=== PATIENT | female | born 1955 | race Caucasian/White ===

== ENCOUNTER → 2016-09-02 | Outpatient (CLI) | payer OTHER ==
--- NOTE | 2016-09-02 14:46 | DX ---
1. Right Ankle, Three Views History: Pain, post trauma. Evaluate for fracture. Ran over by power wheelchair. Findings: No fracture, effusion, or dislocation is identified. Soft tissue swelling surrounds the ank le. Overall mineralization is normal. Impression: Soft tissue swelling.. 2. Right Foot , Three History:Pain post trauma. Ran over by power wheelchair. Findings: There is marked flexion of the second PIP joint. No fracture or dislocation is identified. There is prominent soft tissue swelling of the distal foot. Impression: Marked flexion of the second PIP joint raises the possibility of a disrupted extensor ten don. Clinical correlation is required.
== END ==
LOC: BMCIMAGING 14:17
PROVIDERS: ATTEND Podiatrist Foot & Ankle Surgery
DX: M79.89 Other specified soft tissue disorders (principal); M79.671 Pain in right foot

== ENCOUNTER → 2016-10-15 | Outpatient (CLI) | payer OTHER | LOC: BMCIMAGING 14:58 | PROVIDERS: ATTEND Internal Medicine | DX: Z12.31 Encounter for screening mammogram for malignant neoplasm of breast (principal) | CPT/HCPCS: G0202 ==

== ENCOUNTER 2017-04-24 17:58 | Emergency (ER) | payer OTHER ==
--- NOTE | 2017-04-24 18:43 | CPEKG ---
Heart Rate: 67 RR Interval: 896 P-R Interval: 136 QRSD Interval: 96 QT Interval: 408 QTC Interval: 431 P Nelson: 50 QRS Nelson: 51 T Wave Nelson: 47 EKG Severity - NORMAL ECG - EKG Impression: SINUS RHYTHM Electronically Signed By: Mallory Owens 24-Apr-2017 21:35:51
[2017-04-24] MEDS ORDERED: NS 500 ML IV ONE (19:05)
[2017-04-24] MEDS ORDERED: MECLIZINE HCL 25 MG TAB PO ONE (19:06)
[2017-04-24] MEDS ORDERED: ONDANSETRON 4 MG/2 ML VIAL IVP ONE (19:06)
[2017-04-24] MEDS ORDERED: ONDANSETRON DISINTEGRATING 4 MG TAB PO ONE (19:50)
[2017-04-24] MEDS ORDERED: ONDANSETRON DISINTEGRATING 4 MG TAB ONE (19:51)
--- NOTE | 2017-04-24 20:38 | EDPHY ---
H & P Stated Complaint: Dizziness, vertigo x 3 days, nausea, fatigue Time Seen by Provider: 04/24/17 18:26 HPI/ROS: CHIEF COMPLAINT: Vertigo, high blood pressure HISTORY OF PRESENT ILLNESS: This is a 62-year-old female presents reporting that for the last 3 days she has had vertigo associated with a generally not feeling well and elevated blood pressure. Patient reports a mild headache. She has had no chest pain or shortness of breath. She has had no palpitations. She has been nauseous but has not vomited. She has had decreased p.o. intake secondary to the nausea. No abdominal pain. No diarrhea. Patient describes her vertigo is a spinning sensation especially when she sits up. Her symptoms are much improved when she lays flat. Symptoms are worse when she looks to the right and worse when she turns her head. No head trauma. She is not taking any specific medications for her vertigo. REVIEW OF SYSTEMS: Aside from elements discussed in the HPI, a comprehensive 10-point review of systems was reviewed and is negative. 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 Hypertension. Vertigo. SOCIAL HISTORY: Nonsmoker. Here with her mother. VITAL SIGNS Reviewed by me. GENERAL: Well-developed, well-nourished, no respiratory distress. No vomiting here. HEENT: Atraumatic. Eyes: No icterus, no injection. DOMENICO, EOMI. No nystagmus noted. Symptoms of vertigo with rightward gaze. Mouth: moist mucous membranes. No erythema or lesions. Neck: supple with no adenopathy. LUNGS: Clear to auscultation bilaterally, no wheezes, rhonchi or rales. CARDIAC: Regular rate and rhythm, no rubs, murmurs or gallops. ABDOMEN: Soft, nontender, nondistended, bowel sounds normal. BACK: No CVA tenderness. EXTREMITIES: No trauma. Trace dependent edema. Flaccid paralysis of both lower extremities. NEURO: Alert and oriented, pleasant. Cranial nerves 2-12 are intact. Normal sensation about the face. Normal strength in the upper extremities. Normal sensation in the upper extremities. SKIN: Warm and dry, no rash. PSYCHIATRIC: Normal mentation, no agitation. - Personal History Current Tetanus/Diphtheria Vaccine: Unsure Current Tetanus Diphtheria and Acellular Pertussis (TDAP): Unsure - Medical/Surgical History Hx Asthma: No Hx Chronic Respiratory Disease: No Hx Diabetes: No Hx Cardiac Disease: No Hx Renal Disease: No Hx Cirrhosis: No Hx Alcoholism: No Hx HIV/AIDS: No Hx Splenectomy or Spleen Trauma: No Other PMH: T9-T10 PARA - Social History Smoking Status: Former smoker Constitutional: Initial Vital Signs Temperature (C) 37.6 C 04/24/17 18:05 Heart Rate 81 04/24/17 18:05 Respiratory Rate 16 04/24/17 18:05 Blood Pressure 160/82 H 04/24/17 18:05 O2 Sat (%) 98 04/24/17 18:05 O2 Delivery Mode Room Air Allergies/Adverse Reactions: niacin [Niacin] Allergy (Verified 06/10/15 14:47) Sulfa (Sulfonamide Antibiotics) Allergy (Verified 06/10/15 14:47) Home Medications: Medication Instructions Recorded Baclofen 11/29/10 Cyclobenzaprine [Flexeril] 10 mg PO TID PRN #20 tab 11/29/10 Cymbalta 11/29/10 Ditropan 11/29/10 FENTANYL 11/29/10 Lyrica 11/29/10 Cephalexin [Keflex (RX)] 500 mg PO QID 7 Days cap 06/10/15 Meclizine HCl [Meclizine HCl 25 mg 25 mg PO BID PRN #20 tab 04/24/17 (RX,OTC)] Ondansetron Odt [Zofran Odt 4 mg 4 mg PO Q6 PRN #12 tab 04/24/17 (*)] Medical Decision Making - Diagnostics Imaging Results: 12-LEAD EKG: Please see the full report in [facility]. My interpretation: Normal sinus rhythm ED Course/Re-evaluation: 62-year-old female presents emergency department with vertigo with a well describe spinning sensation associated with certain head movements and had positioning. She also is concerned regarding her blood pressure which is been ranging in the 160 systolic. She is on a diuretic which was started several months ago for her high blood pressure. Initial plans were placed an IV, provide hydration, check electrolytes, and administer Zofran and meclizine. IV was not able to be placed. Patient would prefer not to have a 2nd attempt at the IV. She understands that we will not be able to told recheck her electrolytes are evaluate her for her elevated blood pressure. She did receive meclizine by mouth and Zofran by mouth. After approximately 20 minute she reports feeling significantly improved. She was able to drink water without any nausea or vomiting. She would prefer to be discharged home to follow up with her primary care physician regarding her elevated blood pressure. Patient looks quite well here. She has had only a mild headache, no chest pain or shortness of breath, no acute neurologic symptoms. She understands that her evaluation is somewhat incomplete as we do not have blood work available. She was discharged with her mother. She was given prescription for meclizine as well as Zofran. Differential Diagnosis: Differential diagnosis of the patient's dizziness was considered including but not limited to peripheral and central causes of vertigo, cardiac arrhythmias, cardiac ischemia, electrolyte disturbances, neurologic causes, orthostatic causes including dehydration, and blood loss. - Data Points Medications Given: Discontinued Medications Sodium Chloride (Ns) 500 mls @ 0 mls/hr IV EDNOW ONE; Wide Open PRN Reason: Protocol Stop: 04/24/17 19:06 Last Admin: 04/24/17 20:06 Dose: Not Given Meclizine HCl (Meclizine Hcl) 25 mg PO EDNOW ONE Stop: 04/24/17 19:07 Last Admin: 04/24/17 19:14 Dose: 25 mg Ondansetron HCl (Zofran) 4 mg IVP EDNOW ONE Stop: 04/24/17 19:07 Last Admin: 04/24/17 20:06 Dose: Not Given Ondansetron HCl (Zofran Odt) 4 mg PO EDNOW ONE Stop: 04/24/17 19:51 Last Admin: 04/24/17 19:52 Dose: 4 mg Departure - Departure Disposition: Home, Routine, Self-Care Clinical Impression: Vertigo Hypertension Qualifiers: Hypertension type: unspecified Qualified Code(s): I10 - Essential (primary) hypertension Condition: Good Instructions: Vertigo (ED), Hypertension (ED) Additional Instructions: Please take meclizine as needed for vertigo. I was suggest taking on a regular basis for the next 1-2 days until you are feeling better. The dose is 25 mg every 8-12 hours. Please use Zofran as needed for nausea. You understand that we have not checked blood work to evaluate for hypertension or electrolyte abnormalities. If you're not feeling significantly better with the above treatment, please follow up with her primary care physician on Thursday. if you have other concerns regarding severe dizziness, developed chest pain, shortness of breath, fainting, or sustain high blood pressure, please return to the emergency department Referrals: Tanya Schaffer MD [Primary Care Provider] - As per Instructions Prescriptions: Meclizine HCl [Meclizine HCl 25 mg (RX,OTC)] 25 mg PO BID PRN #20 tab PRN Reason: vertigo Ondansetron Odt [Zofran Odt 4 mg (*)] 4 mg PO Q6 PRN #12 tab PRN Reason: nausea, vomiting
[2017-04-24 21:00] VITALS: BP 166/99; PULSE 69; RESP 18; TEMP 98.7; O2SAT 94
== END 2017-04-24 21:00 | disposition home or self-care (01) ==
DX: R42 Dizziness and giddiness (principal); I10 Essential (primary) hypertension; Z87.891 Personal history of nicotine dependence
CPT/HCPCS: J2405

== ENCOUNTER → 2017-10-23 | Outpatient (CLI) | payer OTHER | LOC: FIMAGING 13:17 | PROVIDERS: ATTEND Internal Medicine | DX: Z12.31 Encounter for screening mammogram for malignant neoplasm of breast (principal) ==

== ENCOUNTER → 2018-10-25 | Outpatient (CLI) | payer OTHER | LOC: FIMAGING 12:17 | PROVIDERS: ATTEND Internal Medicine | DX: Z12.31 Encounter for screening mammogram for malignant neoplasm of breast (principal) ==

== ENCOUNTER → 2018-11-03 | Outpatient (CLI) | payer OTHER | LOC: BMCIMAGING 12:17 | PROVIDERS: ATTEND Family Medicine | DX: S92.151A Displaced avulsion fracture (chip fracture) of right talus, initial encounter for closed fracture (principal); V00.818A Other accident with wheelchair (powered), initial encounter; G82.20 Paraplegia, unspecified ==

== ENCOUNTER → 2018-12-07 | Outpatient (CLI) | payer OTHER | LOC: BMCIMAGING 13:07 | PROVIDERS: ATTEND Podiatrist Foot & Ankle Surgery | DX: S92.251D Displaced fracture of navicular [scaphoid] of right foot, subsequent encounter for fracture with routine healing (principal) ==